=== PATIENT | female | born 1960 | race Caucasian/White ===

== ENCOUNTER → 2020-05-09 13:59 | Outpatient (CLI) | payer BC, SELFPAY ==
--- NOTE | ~2020-05-09 | MR_ITS ---
EXAMINATION: MR brain/brain stem wo/w con DATE: 05/09/2020 15:03 INDICATION: Fracture of base of skull, left side, sequela. Chronic recurrent sinusitis. TECHNIQUE: Magnetic resonance imaging (MRI) of the brain and brainstem was performed without and with 20 mL MultiHance intravenous contrast. Sequences included sagittal and axial T1-weighted FSE, axial diffusion-weighted FS EPI, axial T2*-weighted GRE, axial T2-weighted FLAIR Propeller, axial T2-weight ed Propeller, small mnsfz-is-vrge coronal FIESTA, small zvtno-yp-rguu coronal T1-weighted FSE, and sm all itjka-vt-hbzj axial T1-weighted SPGR. Postcontrast sequences included axial T1-weighted FSE, smal l bpccj-vm-thme coronal T1-weighted FSE, and small wwhfk-lm-gvft axial T1-weighted SPGR. Apparent dif fusion coefficient (ADC) maps were created. COMPARISON: Brain MRI 07/25/2016, head CT 09/20/2015 FINDINGS: There are scattered areas of nonspecific increased T2-weighted signal intensity in the cere bral white matter and bc, which is within normal limits for the patient's age. There is no intracra nial hemorrhage, acute infarction, or abnormal intracranial mass lesion. The ventricles are normal in size. There is mucosal thickening in the ethmoid and left frontal sinuses. The orbits are normal. Th e internal auditory canals and inner and middle ears are normal. The mastoid air cells are normal. IMPRESSION: 1. Normal aging brain. Reviewed, dictated and finalized at location A. IMPRESSION: 1. Normal aging brain.
[2020-05-09 14:26] LABS: Estimated Glomerular Filt Rate > 60
== END ==
DX: S02.102 Fracture of base of skull, left side (principal); J32.9 Chronic sinusitis, unspecified
CPT/HCPCS: 70553; A9577

== ENCOUNTER → 2020-05-09 14:00 | Outpatient (CLI) | payer BC, SELFPAY ==
--- NOTE | ~2020-05-09 | MM_ITS ---
EXAMINATION: MM screening [facility] BI w radha HISTORY: Screening mammogram TECHNIQUE: Craniocaudal and mediolateral oblique 3-D tomosynthesis images were obtained and synthetic 2-D images were generated. CAD analysis was submitted and interpreted. COMPARISON: 03/15/2019, 03/03/2018, 03/09/2017 bilateral digital screening mammogram examinations BREAST PARENCHYMAL COMPOSITION: There are scattered areas of fibroglandular density. FINDINGS: Stable mild fibroglandular asymmetry. There is no evidence of suspicious mass, calcificatio n, or architectural distortion to suggest malignancy in either breast. There has been no suspicious i nterval change. IMPRESSION: 1. No mammographic evidence of malignancy. 2. Recommend routine screening mammography in one year. BI-RADS Category 2: Benign finding(s). Reviewed, dictated and finalized at location A.
== END ==
PROVIDERS: Visit Provider Nurse Practitioner Obstetrics & Gynecology
DX: Z12.31 Encounter for screening mammogram for malignant neoplasm of breast (principal)
CPT/HCPCS: 77063; 77067

== ENCOUNTER → 2021-06-10 16:00 | Outpatient (CLI) | payer BC, SELFPAY ==
--- NOTE | ~2021-06-10 | MM_ITS ---
EXAMINATION: MM screening melony BI w radha HISTORY: Screening mammogram TECHNIQUE: Craniocaudal and mediolateral oblique 3-D tomosynthesis images were obtained and synthetic 2-D images were generated. CAD analysis was submitted and interpreted. COMPARISON: 05/05/2020, , 03/03/2018 bilateral digital screening mammogram examinations BREAST PARENCHYMAL COMPOSITION: There are scattered areas of fibroglandular density. FINDINGS: There is no evidence of suspicious mass, calcification, or architectural distortion to sugg est malignancy in either breast. There has been no suspicious interval change. IMPRESSION: 1. No mammographic evidence of malignancy. 2. Recommend routine screening mammography in one year. BI-RADS Category 1: Negative Reviewed, dictated and finalized at location A.
== END ==
PROVIDERS: Visit Provider Obstetrics & Gynecology
DX: Z12.31 Encounter for screening mammogram for malignant neoplasm of breast (principal)
CPT/HCPCS: 77063; 77067

== ENCOUNTER → 2021-08-06 15:58 | Outpatient (CLI) | payer BC, SELFPAY ==
--- NOTE | ~2021-08-06 | DEXA_ITS ---
Bone Density Report Name: SANDRA RAGSDALE Age: 60 Sex: Female Ethnicity: White Date of : 1960 Indication: osteopenia; parental hip fracture; rheumatoid arthritis; postmenopausal Referring Provider: BRANDON FISH Study: Bone densitometry was performed. Exam Date: August 06, 2021 Accession number: [id number] Bone Density: Region BMD T-score Z-score Classification AP Spine (L1-L4) 0.933 -1.0 0.5 Normal Femoral Neck (Left) 0.725 -1.1 0.2 Osteopenia Total Hip (Left) 0.881 -0.5 0.5 Normal Femoral Neck (Right) 0.787 -0.6 0.8 Normal Total Hip (Right) 0.851 -0.7 0.3 Normal Total Hip Mean 0.866 -0.6 0.4 Normal World Health Organization criteria for BMD impression classify patients as: Normal (T-score at or above -1.0), Osteopenia (T-score between -1.0 and -2.5), or Osteoporosis (T-score at or below -2.5). 10-year Fracture Risk(1): Major Osteoporotic Fracture 18% Hip Fracture 0.7% Reported Risk Factors: [place] (), Neck BMD=0.725, BMI=34.5, parental fracture, rheumatoid arthritis (1) FRAX(R) Version 3.08. Fracture probability calculated for an untreated patient. Fracture probability may be lower if the patient has received treatment. Previous Exams: Region Exam Age BMD T-score BMD Change BMD Change Date g/cm2 vs Baseline vs Previous AP Spine(L1-L4) 08/06/2021 60 0.933 -1.0 -0.099 0.021 03/11/2015 54 0.911 -1.2 -0.120 -0.113 02/26/2011 50 1.024 -0.2 -0.007 -0.007 02/27/2004 43 1.031 -0.1 Total Hip(Left) 08/06/2021 60 0.881 -0.5 0.020 -0.003 03/11/2015 54 0.885 -0.5 0.023 -0.041 02/26/2011 50 0.925 -0.1 0.064 0.064 02/27/2004 43 0.861 -0.7 Total Hip(Right) 08/06/2021 60 0.851 -0.7 -0.044 -0.006 03/11/2015 54 0.857 -0.7 -0.038 -0.043 02/26/2011 50 0.900 -0.3 0.005 0.005 02/27/2004 43 0.895 -0.4 *Denotes significance at 95% confidence level, LSC for AP Spine = 0.022 g/cm2, LSC for Total Hip = 0.027 g/cm2 Clinical Information Provided by Patient: Parent has had a hip fracture Has rheumatoid arthritis Has used the following medications: Vitamin D Patient maximum height was 64.5 Menopause Age: 51 Does not regularly consume dairy products Drinks caffeinated beverages Onset of menses at age 13 Number of children 0
== END ==
PROVIDERS: Visit Provider Obstetrics & Gynecology
DX: Z78.0 Asymptomatic menopausal state (principal); M85.852 Other specified disorders of bone density and structure, left thigh
CPT/HCPCS: 77080

== ENCOUNTER → 2022-03-24 16:03 | Outpatient (CLI) | payer BC, SELFPAY ==
--- NOTE | ~2022-03-24 | MM_ITS ---
EXAMINATION: MM screening [facility] BI w radha HISTORY: Screening mammogram TECHNIQUE: Craniocaudal and mediolateral oblique 3-D tomosynthesis images were obtained and synthetic 2-D images were generated. CAD analysis was submitted and interpreted. COMPARISON: 06/10/2021, 05/09/2020, 03/15/2019 BREAST PARENCHYMAL COMPOSITION: There are scattered areas of fibroglandular density. FINDINGS: There is no suspicious mass, calcification, or architectural distortion to suggest malignan cy in either breast. There has been no suspicious interval change. IMPRESSION: 1. No mammographic evidence of malignancy. 2. Recommend routine screening mammography in one year. BI-RADS Category 1: Negative Reviewed, dictated and finalized at location A.
== END ==
PROVIDERS: Visit Provider Obstetrics & Gynecology
DX: Z12.31 Encounter for screening mammogram for malignant neoplasm of breast (principal)
CPT/HCPCS: 77063; 77067

== ENCOUNTER 2022-08-13 15:54 | Emergency (ER) | payer BC, SELFPAY ==
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
[2022-08-13 16:09] VITALS: BP 131/75; PULSE 80; RESP 16; TEMP 36.3; O2SAT 99
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
[2022-08-13] MEDS: HYDROcodone/acetaminophen (*CRX) 5-325 MG TABLET 1 TAB PO (17:49)
[2022-08-13] MEDS: IBUPROFEN 400 MG TABLET 800 MG PO (17:49)
[2022-08-13] MEDS: TETANUS,DIPHTHERIA,AC PERTUSSIS ADULT (0.5 ML) BOOSTRIX IM (17:50)
[2022-08-13] MEDS: ACETAMINOPHEN 325 MG TABLET 650 MG PO (18:15)
== END 2022-08-13 19:14 | disposition home or self-care (01) ==
LOC: ANHED 18:32
PROVIDERS: Emergency Provider Emergency Medicine
DX: S42.291A Other displaced fracture of upper end of right humerus, initial encounter for closed fracture (principal); S80.812A Abrasion, left lower leg, initial encounter; S60.512A Abrasion of left hand, initial encounter; Z23 Encounter for immunization; I10 Essential (primary) hypertension; M06.9 Rheumatoid arthritis, unspecified; Z85.828 Personal history of other malignant neoplasm of skin; V18.4XXA Pedal cycle driver injured in noncollision transport accident in traffic accident, initial encounter; Y93.55 Activity, bike riding
CPT/HCPCS: 73060; 90471; 90715; 99284; A4565; A9270

== ENCOUNTER → 2022-08-19 12:52 | Outpatient (CLI) | payer BC, SELFPAY ==
--- NOTE | ~2022-08-19 | CT_ITS ---
Noncontrast CT scan of the right upper extremity Clinical history: Proximal humeral fracture TECHNIQUE: Axial noncontrast imaging of the right shoulder was performed. Sagittal and coronal reform atted images were constructed. Dose reduction technique was used on this scan by utilizing automated exposure control and iterative reconstruction technique. FINDINGS: There is a comminuted fracture of the proximal humerus, with transverse fracture line throu gh the surgical neck, as well as multiple facial fractures involving the greater tuberosity and proba cindy lesser tuberosity as well. Fracture fragments overall are mildly displaced. There is mild AC join t degenerative change. Small glenohumeral joint effusion is probably present. No other gross soft tissue abnormality evident on noncontrast CT scan. IMPRESSION: Comminuted fracture of the surgical neck of the humerus as well as the greater and lesser tuberositie s, with mild displacement overall. Reviewed, dictated and finalized at [facility]. PROFESSIONAL IMPRESSION: Comminuted fracture of the surgical neck of the humerus as well as the greater and lesser tuberosities, with mild displacement overall.
== END ==
DX: S42.291A Other displaced fracture of upper end of right humerus, initial encounter for closed fracture (principal); X58.XXXA Exposure to other specified factors, initial encounter
CPT/HCPCS: 73200

== ENCOUNTER → 2023-03-19 14:24 | Outpatient (CLI) | payer BC, SELFPAY ==
--- NOTE | ~2023-03-19 | MM_ITS ---
EXAMINATION: MM screening melony BI w radha HISTORY: Screening mammogram TECHNIQUE: Craniocaudal and mediolateral oblique 3-D tomosynthesis images were obtained and synthetic 2-D images were generated. CAD analysis was submitted and interpreted. COMPARISON: 03/24/2022, 06/10/2021, 05/09/2020 bilateral screening mammogram examinations BREAST PARENCHYMAL COMPOSITION: There are scattered areas of fibroglandular density. FINDINGS: There is no evidence of suspicious mass, calcification, or architectural distortion to sugg est malignancy in either breast. There has been no suspicious interval change. IMPRESSION: 1. No mammographic evidence of malignancy. 2. Recommend routine screening mammography in one year. BI-RADS Category 1: Negative Reviewed, dictated and finalized at location A.
== END ==
PROVIDERS: Visit Provider Obstetrics & Gynecology
DX: Z12.31 Encounter for screening mammogram for malignant neoplasm of breast (principal)
CPT/HCPCS: 77063; 77067

== ENCOUNTER 2023-10-29 14:54 | Outpatient (CLI) | payer BC, SELFPAY ==
--- NOTE | ~2023-10-29 | CT_ITS ---
EXAMINATION: CT diagnostic chest wo con DATE: 10/29/2023 15:21 INDICATION: sob, wheezing, fu lung nodule TECHNIQUE: Computed tomography (CT) of the chest was performed without intravenous contrast. Addition al 3D reconstructions utilizing coronal maximum intensity projection (MIP) were performed. Automated exposure control and iterative reconstruction technique were employed. The dose-length product was 32 0.90 mGy-cm. COMPARISON: 07/18/2019 FINDINGS: Again seen is minimal biapical pleural-parenchymal scarring. Lungs are otherwise clear with no pulmon jaz nodules, pneumonia, pulmonary edema or pleural effusion. Heart size is normal. Atherosclerotic co ronary artery calcification. No pericardial effusion. Thoracic aorta is normal in caliber. No patholo gically enlarged thoracic plain screw fixation at the proximal right humerus. Moderate thoracic lymph adenopathy. Moderate thoracic spondylosis with chronic mild anterior wedging of a few lower thoracic vertebral bodies. IMPRESSION: 1. No pulmonary nodules or other acute cardiopulmonary disease. Reviewed, dictated and finalized at location B.
== END 2023-10-29 14:55 ==
LOC: MICIMG 14:55
PROVIDERS: PCP Internal Medicine; Visit Provider Internal Medicine
DX: R06.2 Wheezing (principal); R06.02 Shortness of breath
CPT/HCPCS: 71250

== ENCOUNTER 2024-05-29 12:21 | Outpatient (CLI) | payer BC, SELFPAY ==
--- NOTE | ~2024-05-29 | MM_ITS ---
EXAMINATION: MM screening melony BI w radha HISTORY: Screening TECHNIQUE: Craniocaudal and mediolateral oblique 3-D tomosynthesis images were obtained and synthetic 2-D images were generated. CAD analysis was submitted and interpreted. COMPARISON: Comparison to multiple prior studies sequentially, with oldest reviewed study dated 04/2018. BREAST PARENCHYMAL COMPOSITION: Not dense: There are scattered areas of fibroglandular density. FINDINGS: There is no evidence of suspicious mass, calcification, or architectural distortion to sugg est malignancy in either breast. There has been no suspicious interval change. IMPRESSION: 1. No mammographic evidence of malignancy. 2. Recommend routine screening mammography in one year. BI-RADS Category 1: Negative Reviewed, dictated and finalized at location B.
== END 2024-05-29 12:22 | disposition home or self-care (01) ==
PROVIDERS: PCP Nurse Practitioner; Visit Provider Internal Medicine
DX: Z12.31 Encounter for screening mammogram for malignant neoplasm of breast (principal)
CPT/HCPCS: 77063; 77067

== ENCOUNTER 2024-06-05 10:46 | Outpatient (CLI) | payer BC, SELFPAY ==
--- NOTE | ~2024-06-05 | DEXA_ITS ---
Bone Density Report Name: SANDRA RAGSDALE Age: 63 Sex: Female Ethnicity: White Date of : 1960 Indication: postmenopausal; screening for osteoporosis; parental hip fracture; height loss; rheumatoid arthritis; Referring Provider: LUCILA HILARIO Study: Bone densitometry was performed. Exam Date: June 05, 2024 Accession number: [id number] Bone Density: Region BMD T-score Z-score Classification AP Spine(L1-L4) 0.947 -0.9 0.8 Normal Femoral Neck (Left) 0.685 -1.5 0.0 Osteopenia Total Hip (Left) 0.911 -0.3 0.9 Normal Femoral Neck (Right) 0.741 -1.0 0.5 Normal Total Hip (Right) 0.896 -0.4 0.8 Normal Total Hip Mean 0.904 -0.4 0.9 Normal World Health Organization criteria for BMD impression classify patients as: Normal (T-score at or above -1.0), Osteopenia (T-score between -1.0 and -2.5), or Osteoporosis (T-score at or below -2.5). 10-year Fracture Risk(1): Major Osteoporotic Fracture 20% Hip Fracture 1.2% Reported Risk Factors: [place] (), Neck BMD=0.685, BMI=30.5, parental fracture, rheumatoid arthritis (1) FRAX(R) Version 3.08. Fracture probability calculated for an untreated patient. Fracture probability may be lower if the patient has received treatment. Clinical Information Provided by Patient: Parent has had a hip fracture Has rheumatoid arthritis Has used the following medications: Vitamin D, Calcium Patient maximum height was 65.0 Does not regularly consume dairy products Drinks caffeinated beverages Onset of menses at age 13 Number of children 0 Impression: The patient has low bone mass, based on the Left Femoral Neck T-score. The patient has an estimated ten-year risk of hip fracture of 1.2% and an estimated ten-year risk of major fracture of 20%, based on the WHO FRAX algorithm. The patient has risk factors, including: parental hip fracture. Discussion: BONE DENSITY IS LOW AT ONE OR MORE SKELETAL SITES. THE PATIENT'S BMD AND CLINICAL RISK FACTORS CONTRIBUTE TO THIS PATIENT'S INCREASED RISK OF FRACTURE. This patient's lowest T-score is low at one or more skeletal sites. It meets the World Health Organization's (WHO) criteria for ?low bone mass? (T-score between -1.0 and -2.5). The patient's 10-year risk of a major osteoporotic fracture as calculated by FRAX exceeds the threshold where pharmacological therapy is recommended by the National Osteoporosis Foundation (NOF). However, all treatment decisions require clinical judgment and consideration of individual patient factors, including patient preferences, comorbidities, previous drug use, risk factors not captured in the FRAX model (e.g., frailty, falls, vitamin D deficiency, increased bone turnover, interval significant decline in bone density) and possible under or overestimation of fracture risk by FRAX. The
== END 2024-06-05 10:47 | disposition home or self-care (01) ==
LOC: ANHIMG 10:48
PROVIDERS: PCP Internal Medicine; Visit Provider Obstetrics & Gynecology
DX: Z13.820 Encounter for screening for osteoporosis (principal); M85.852 Other specified disorders of bone density and structure, left thigh
CPT/HCPCS: 77080

== ENCOUNTER 2025-06-07 14:25 | Outpatient (CLI) | payer BC, SELFPAY ==
--- NOTE | ~2025-06-07 | MM_ITS ---
EXAMINATION: MM screening melony BI w radha HISTORY: Screening TECHNIQUE: Craniocaudal and mediolateral oblique 3-D tomosynthesis images were obtained and synthetic 2-D images were generated. CAD analysis was submitted and interpreted. COMPARISON: Comparison to multiple prior studies sequentially, with oldest reviewed study dated 03/15/2019. BREAST PARENCHYMAL COMPOSITION: Not dense: There are scattered areas of fibroglandular density. FINDINGS: There is a developing left periareolar asymmetry. The right breast is stable without evidence for malignancy. There are no suspicious calcifications or architectural distortion. IMPRESSION: 1. Developing left periareolar asymmetry. 2. Additional mammographic views and possible breast ultrasound are recommended. BI-RADS Category 0: Incomplete: Needs additional imaging evaluation. Reviewed, dictated and finalized at location O. IMPRESSION: 1. Developing left periareolar asymmetry. 2. Additional mammographic views and possible breast ultrasound are recommended . BI-RADS Category 0: Incomplete: Needs additional imaging evaluation.
--- OUTSIDE RECORDS SUMMARY | 2025-06-07 15:26 | XMS_ITS ---
Author Organization [facility] Address [address] [place] [address] Care Team Providers Care [employer] Tier Off Name Role Phone Salbador Reyes MD Primary Care Provider [phone] Active Problems Problem Noted Date Diagnosed Date Other seborrheic keratosis 09/17/2022 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 Multiple benign melanocytic nevi 09/17/2022 Eczema 09/17/2022 Closed fracture of right proximal humerus 2022 Overview (08/27/2022): Added automatically from request for surgery [id number] Obesity with body mass index 30 or greater 03/15 High risk medications (not anticoagulants) long- term use 11/25/2010 Essential hypertension 01/22/2009 Overview (09/17/2022): Vitamin D deficiency 01/22/2009 01/21/2023 Rheumatoid arthritis 10/20/2008 Overview (09/17/2022): CCP (+): RF (+) First seen 02/24/07 Recent CBC CMP Vit D all WNL Treated chcf with MTX and it made her feel bad 11/28/2010 doing well CRP normal will reduce plaquenil 200 mg daily 11/27/2011 plaquenil R3=1 07/25/2013 R3=0 BCC (basal cell carcinoma of skin) 10/20/2008 Current Treatment and Therapy Plans No current plan information found. Past Treatment and Therapy Plans No past plan information found. Lifetime Dose Tracking * Chemical Lifetime Dose Automatic Entry Manual Entr y Fluoro Time 2.338 minutes 2.338 minutes 0 minutes Air kerma at the reference point (Ka,r) 15.62 mGy 1 5.62 mGy 0 mGy
--- OUTSIDE RECORDS SUMMARY | 2025-06-07 15:26 | XMS_ITS | Clinical Summary ---
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 before breakfast Active potassium chloride ER (KLOR-CON) 10 mEq CR tabletIndicatio ns:hypokalemia prevention Take 10 mEq by mouth superintendent renting managing before breakfast Active lisinopril (PRINIVIL,ZESTR IL) 20 mg tabletIndicatio ns:hypertension Take 20 mg by mouth 2 (two) times a day Active sertraline (ZOLOFT) 25 mg tabletIndicatio ns:Anxiety with Depression Take 50 mg by mouth superintendent renting managing before breakfast Active loratadine (CLARITIN) 10 mg tabletIndicatio ns:Allergic Rhinitis Take 10 mg by mouth nightly Active cholecalciferol (VITAMIN D-3) 15334 unit capsuleIndicati ons:Prevention of Vitamin D Deficiency Take 10,000 Units by mouth 2 (two) times a day Active calcium carbonate (CALTRATE 600 ORAL)Indication s:supplement Take 1 capsule by mouth superintendent renting managing before breakfast Active ascorbic acid (VITAMIN C) 100 mg tabletIndicatio ns:Vitamin C Deficiency Take 100 mg by mouth superintendent renting managing before breakfast Active coenzyme Q10 10 mg capsuleIndicati ons:supplement Take 10 mg by mouth superintendent renting managing before breakfast Active unyvbpc-xstk-nw zfz-bqcs-wwbznz 100 mg-150 mg- 50 mg-150 mg capsuleIndicati ons:supplement Take 1 capsule by mouth superintendent renting managing before breakfast Active lutein 20 mg tabletIndicatio ns:supplement Take 1 tablet by mouth superintendent renting managing before breakfast Active fluticasone propionate (FLONASE) 50 mcg/actuation nasal sprayIndication s:Allergic Rhinitis Administer 1 spray into each nostril as needed Active ibuprofen (ADVIL,MOTRIN) 800 mg tabletIndicatio ns:Pain Take 800 mg by mouth as needed 2 Active senna-docusate (PERICOLACE) 8.6-50 mg Take 2 tablets by mouth 2 (two) times a day 40 tablet 3 Active tofacitinib (XELJANZ) 5 mg tablet Take by mouth Active traMADoL (ULTRAM) 50 mg tablet Take 1 tablet (50 mg total) by mouth every 6 (six) hours as needed for pain 28 tablet 3 Active BD Tuberculin Syringe 1 mL 27 x 1/2 syringe USE WITH ALLERGY INJECTIONS TWICE WEEKLY 3 Active Active Problems Problem Noted Date Diagnosed Date Other seborrheic keratosis 09/17/2022 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 Multiple benign melanocytic nevi 09/17/2022 Eczema 09/17/2022 Closed fracture of right proximal humerus 2022 Overview (08/27/2022): Added automatically from request for surgery [id number] Obesity with body mass index 30 or greater 03/15 High risk medications (not anticoagulants) long- term use 11/25/2010 Essential hypertension 01/22/2009 Overview (09/17/2022): Vitamin D deficiency 01/22/2009 01/21/2023 Rheumatoid arthritis 10/20/2008 Overview (09/17/2022): CCP (+): RF (+) First seen 02/24/07 Recent CBC CMP Vit D all WNL Treated correction with MTX and it made her feel bad 11/28/2010 doing well CRP normal will reduce plaquenil 200 mg daily 11/27/2011 plaquenil R3=1 07/25/2013 R3=0 BCC (basal cell carcinoma of skin) 10/20/2008 Surgical History Surgery Date Site/Laterality Comments SKIN CANCER EXCISION APPENDECTOMY 08/16/1968 - 08/15/1969 SINUS SURGERY Medical History Medical History Date Comments Hypertension Hyperlipidemia MVP (mitral valve prolapse) hx o f Palpitations GERD (gastroesophageal reflux disease) Hiatal hernia Skin cancer basal cell Rheumatoid arthritis (HCC) Anxiety Obesity Family History Medical History Relation Name Comments Alcohol abuse Brother Alcohol abuse Father Heart disease Father Hypertension Father Anesthesia problems Neg Hx Relation Name Status Comments Brother Father Social History Tobacco Use Types Packs/Day Years Used Date Smoking Tobacco: Former Cigarettes Q uit: 10/06/1999 Smokeless Tobacco: Never Tobacco Cessation:Counseling Given: Not Answered Alcohol Use Standard Drinks/Week Comments Not Currently 0 (1 standard drink = 0.6 oz pur e alcohol) AUDIT-C Answer Date Recorded Q1: How often do you have a drink containing alcohol? Never 08/27/2022 Q2: How many drinks containi ng alcohol do you have on a typical day when you are drinking? Patient does not drink Q3: How often do you have si x or more drinks on one occasion? 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 Not on file Not on file Not on file Obstetrics History Last Filed Vital Signs Vital Sign Reading Time Taken Comments Blood Pressure 126/41 08/31/2022 12:40 PM HOUSE MOVING SUPERVISOR Pulse 69 08/31/2022 12:40 PM HOUSE MOVING SUPERVISOR Temperature 36.3 C (97.3 F) 08/31/2022 11:00 AM HOUSE MOVING SUPERVISOR Respiratory Rate 14 08/31/2022 12:4 0 PM HOUSE MOVING SUPERVISOR Oxygen Saturation 93% 08/31/2022 12: 40 PM HOUSE MOVING SUPERVISOR Inhaled Oxygen Concentration - - Weight 90.2 kg (198 lb 13.7 oz) 08/27/2022 2:25 PM HOUSE MOVING SUPERVISOR Height 163.8 cm (5' 4.5) 08/27/2022 2:25 PM HOUSE MOVING SUPERVISOR Body Mass Index 33.61 08/27/2022 2:25 PM HOUSE MOVING SUPERVISOR Plan of Treatment Health Maintenance Due Date Last Done Comments Breast Cancer Screening-Mammogram 1959 Cervical Cancer Screening 1959 Colon Cancer Screening-Colonoscopy 1959 Depression Screening 1959 Hepatitis C Screening 1959 Osteoporosis Screening-Bone Density Scan 1959 Hepatitis B Screening 11/09/1977 Fall Risk Assessment 08/27/2023 08/27/2022 Well Visit 65+ 11/09/2024 Pneumococcal vaccine 65+ (3 of 3 - PCV20 or PCV21) 01/06/2025 01/07/2020, 09/09/2015 Covid-19 Vaccine (6 - 2024-2 6 season) 2025 03/07/2022, 10/04/2021, 04/23/2021, Additional history exists Influenza Vaccine (#1) 2025 , 04/21/2020, 04/29/2019, Additional history exists DTaP/Tdap/Td Vaccine (2 - Td or Tdap) 08/13/2032 08/13/2022 Zoster Vaccine Completed 05/07/2018, 03/02/2018 Medical Devices Implanted Type Area Scullion Chief Device Identifier Shelf Expiration Date Model / Serial / Lot Musculoskeletal Transplant Graft Bone Fibula Shaft Allograft Frozen 40mmx5+ Mm [id number] - [id number] - [id number] Implanted:Qty: 1 on 08/31/2022 by Jerson Ferrer MD at [facility] Right: Humerus Musculoskeletal Transplant [id number] 05/04/2025 [id number] / [id number] / Synthes 3.5mm 2.9mm 42mm Self Tap Lock Stardrive Conical Head Full Thread 212.118 - [id number] Implanted:Qty: 1 on 08/31/2022 by Jerson Ferrer MD at [facility] Right: Humerus Synthes I 212.118 / / Synthes 3.5mm 2.9mm 46mm Self Tap Lock Stardrive Conical Head T15 Full 212.136 - [id number] Implanted:Qty: 1 on 08/31/2022 by Jerson Ferrer MD at [facility] Right: Humerus Synthes I 212.136 / / Synthes 3.5mm 2.9mm 40mm Self Tap Lock Stardrive Conical Head T15 Full 212.117 - [id number] Implanted:Qty: 1 on 08/31/2022 by Jerson Ferrer MD at [facility] Right: Humerus Synthes I 212.117 / / Synthes 3.5mm 2.9mm 36mm Self Tap Lock Stardrive Conical Head T15 Full 212.115 - [id number] Implanted:Qty: 1 on 08/31/2022 by Jerson Ferrer MD at [facility] Right: Humerus Synthes I 212.115 / / Synthes Lcp Combi Philos [id number] 3 Hole Shaft Lock Compression 241.901 - [id number] Implanted:Qty: 1 on 08/31/2022 by Jerson Ferrer MD at [facility] Right: Humerus Synthes I 241.901 / / Synthes 3.5mm 6mm 28mm 2.5mm Self Tap Small Hexagonal Socket Low Profile 204.828 - [id number] Implanted:Qty: 1 on 08/31/2022 by Jerson Ferrer MD at [facility] Right: Humerus Synthes I 204.828 / / Synthes 3.5mm 2.9mm 50mm Self Tap Lock Stardrive Conical Head T15 Full 212.121 - [id number] Implanted:Qty: 1 on 08/31/2022 by Jerson Ferrer MD at [facility] Right: Humerus Synthes I 212.121 / / Synthes 3.5mm 2.9mm 35mm Self Tap Lock Stardrive Conical Head T15 Full 212.114 - [id number] Implanted:Qty: 1 on 08/31/2022 by Jerson Ferrer MD at [facility] Right: Humerus Synthes I 212.114 / / Synthes 3.5mm 2.9mm 38mm Self Tap Lock Stardrive Conical Head T15 Full 212.116 - [id number] Implanted:Qty: 1 on 08/31/2022 by Jerson Ferrer MD at [facility] Right: Humerus Synthes I 212.116 / / Synthes 3.5mm 2.9mm 44mm Self Tap Lock Stardrive Conical Head T15 Full 212.134 - [id number] Implanted:Qty: 2 on 08/31/2022 by Jerson Ferrer MD at [facility] Right: Humerus Synthes I 212.134 / / Synthes 3.5mm 2.9mm 28mm Self Tap Lock Stardrive Conical Head T15 Full 212.110 - [id number] Implanted:Qty: 1 on 08/31/2022 by Jerson Ferrer MD at [facility] Right: Humerus Synthes I 212.110 / / Synthes 3.5mm 6mm 26mm 2.5mm Self Tap Small Hexagonal Socket Low Profile 204.826 - [id number] Implanted:Qty: 1 on 08/31/2022 by Jerson Ferrer MD at [facility] Right: Humerus Synthes I 204.826 / / Explanted Type Area Scullion Chief Device Identifier Shelf Expiration Date Model / Serial / Lot [employer] Trinity .062in 9in Trocar Point One End Orthopedic Wire [id number] - [id number] Explanted:Qty: 2 on 08/31/2022 by Jerson Ferrer MD at [facility] Right: Humerus [employer] [id number] S / / [place] [address] [facility] [place] Care Teams Construction Area Manager Relationship Specialty Start Date End Date Salbador Reyes MD [address] [place] [address] PCP - General 09/12/19
--- OUTSIDE RECORDS SUMMARY | 2025-06-07 15:26 | XMS_ITS | Encounter Summary ---
Author Organization [facility] Address [address] [address] Care Team Providers Care Spragger Name Role Phone Salbador Reyes MD Primary Care Provider Garcia Orellana MD Unavailable Unavailable Encounter Details Date Type Department Care Team (Late st Contact Info) Description 06/03/2012 [facility] Outpatient Visit EXTERNAL NON-[facility] Flaquito Mckay MD [address] [place] [id number] Social History Tobacco Use Types Packs/Day Years Used Date Smoking Tobacco: Never Alcohol Use Standard Drinks/Week Comments Yes 0 (1 standard drink = 0.6 oz pur e alcohol) RARELY Comments No Sex and Gender Information Value Date Recorded Sex Assigned at Not on file 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
--- OUTSIDE RECORDS SUMMARY | 2025-06-07 15:27 | XMS_ITS | Data Portability ---
Author Organization [facility] [place] Address [address] [place] [address] Care Team Providers Care Channeler Name Role Phone PETE HOLDER Primary Care Provider Assessment Encounter Date Assessment Date Assessment LastModified by Organization Details LastModified Time 05/13/2021 05/13/2021 healthy female exam/menopause patient *declines std testing pap due 2022, discussed guidelines mammogram scheudled next month colonoscopy due 2030 dexa baseline ordered Encouraged weight bearing exercise and 1500mg daily of Calcium with Vitamin D FU 1 year or prn [email or web address] Not available 05/14/2021 09:24:03 03/28/2022 03/28/2022 Annual gynecological exam performed. Patient will come back in a year unless there are new symptoms. [email or web address] Not available 03/28/2022 12:53:47 03/19/2023 03/19/2023 healthy female exam/menopause pap due 2024 mammogram later today colonoscopy due 2030 dexa repeat next year Encouraged weight bearing exercise and 1500mg daily of Calcium with Vitamin D FU 1 year or prn [email or web address] Not available 03/19/2023 18:23:24 05/29/2024 05/29/2024 Annual gynecological exam performed. Patient will come back in a year unless there are new symptoms. [email or web address] Not available 05/29/2024 14:59:50 05/30/2025 05/30/2025 Annual gynecological exam performed. Patient will come back in a year unless there are new symptoms. [email or web address] Not available 05/30/2025 16:03:24 Plan of Treatment Reminders Order Date Submit Date Provider Last Modified By Organization Details Last Modified Time Details Appointments None record ed. Lab None record ed. Referral None record ed. Procedures None record ed. Surgeries None record ed. Imaging None record ed. Medication Orders None record ed. Patient TargetsNo targets recorded. Patient InstructionsNo instructions recorded. Reason for Referral None Reported. 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 Atrop hic cell cecile sanders. Savanna castro david d by Jessica Bolanos, CT on 2021 at 1:23 PM ----- ----- ----- ----- ----- ----- ----- ----- ----- ----- ----- ----- ----- ----- ----- ----- ----- ---- HPV RESUL TS: HPV mRNA E6/E7 : No HPV mRNA Detec manuel NOTE: This high risk HPV mRNA assay detec ts fourt een high- risk HPV types (16, 18, 31, 33, 35, 39, 45, 51, 52, 56, 58, 59, 66, 68) witho ut diffe renti ation . COMME NT: Note: This speci men was revie wed by a Cytot echno logis t and/o r Patho logis t (as indic ated in this repor t) after evalu ation using the Thinp rep Imagi ng Syste m. CLINI DESIRAE INFOR MATIO N: Menst rual Statu s: LMP (if appli cable ): Clini desirae Histo ry/Pr eviou s Pap: Type of Neopl prudence (if appli cable ): Signi fican t Clini desirae Findi ngs: Other Histo ry: Hormo matt (if appli cable ): PAP EDUCA SERA L NOTE: The Pap Test is a scree dariel test with an inher ent false negat casper rate. Liqui d-bas ed sampl ing may decre ase, but will not elimi andrei, false negat casper resul ts. A negat casper resul t does not precl ude the prese nce and/o r devel opmen t of disea se, since the prese nce of abnor mal cells in the sampl e depen ds on the locat ion of the lesio n and sampl ing techn ique. Vero nued regul ar scree dariel is the best metho d of cance r preve ntion . If repor manuel cytol ogic findi ng do not corre late with physi desirae and/o r histo rical findi ngs, furth er inves tigat ion is recom solomon d, as clini raimundo diaz nted. Not Available [facility] [address] [place], [address], 04/03/2022 14:26:15 05/29/20 24 05/29/2024 IMAGE GUIDE D PAP AND HPV REGAR DLESS image guided Pap, HPV regardless of Pap result SEE RESULT S BELOW CASE REPOR T: Cytol ogy Gynec ologi desriae Repor t Case: [id number] Autho rizunilda g Provi vamshi: Antonio Ruff MD Colle cted: 05/29 1606 Order ing Locat ion: [place] [facility] Recei mak: 05/30 0147 First Scree n: Deloris Ramos, CT Speci men: David vieira Pap - Image d, Cervi x STATE MENT OF ADEQU ACY: Satis facto ry for evalu ation Trans forma tion zone compo nent canno t be defin itive ly ident ified due to the prese nce of atrop hy or other hormo nal che es ----- ----- ----- ----- ----- ----- ----- ----- ----- ----- ----- ----- ----- ----- ----- ----- ----- ---- FINAL DIAGN OSIS: Negat casper for Intra epith elial Lesio n or Leslie beth (NIL) . Atrop hic cell cecile sanders. Elect simon pascual by Deloris Ramos, CT on 06/02 at 12:15 PM ----- ----- ----- ----- ----- ----- ----- ----- ----- ----- ----- ----- ----- ----- ----- ----- ----- ---- HPV RESUL TS: HPV mRNA E6/E7 : No HPV mRNA Detec manuel NOTE: This high risk HPV mRNA assay detec ts fourt een high- risk HPV types (16, 18, 31, 33, 35, 39, 45, 51, 52, 56, 58, 59, 66, 68) witho ut diffe renti ation . COMME NT: This speci men was revie wed by a Cytot echno logis t and/o r Patho logis t (as indic ated in this repor t) after evalu ation using the Thinp rep Imagi ng Syste m. CLINI DESIRAE INFOR MATIO N: Menst rual Statu s: LMP (if appli cable ): Clini desirae Histo ry/Pr eviou s Pap: Type of Neopl prudence (if appli cable ): Signi fican t Clini desirae Findi ngs: Other Histo ry: Hormo matt (if appli cable ): PAP EDUCA SERA L NOTE: The Pap Test is a scree dariel test with an inher ent false negat casper rate. Liqui d-bas ed sampl ing may decre ase, but will not elimi andrei, false negat casper resul ts. A negat casper resul t does not precl ude the prese nce and/o r devel opmen t of disea se, since the prese nce of abnor mal cells in the sampl e depen ds on the locat ion of the lesio n and sampl ing techn ique. Vero nued regul ar scree dariel is the best metho d of cance r preve ntion . If repor manuel cytol ogic findi ng do not corre late with physi desirae and/o r histo rical findi ngs, furth er inves tigat ion is recom solomon d, as clini raimundo diaz nted. Not Available [facility] (Lab) [address], [place], [address], 06/02/2024 13:18:44 05/30/20 25 05/30/2025 IMAGE GUIDE D PAP AND HPV REGAR DLESS image guided Pap, HPV regardless of Pap result SEE RESULT S BELOW CASE REPOR T: Cytol ogy Gynec ologi desirae Repor t Case: [id number] Autho tim g Provi vamshi: Antonio Ruff MD Colle cted: 05/30 1554 Order ing Locat ion: [place] [facility] Recei mak: 05/31 0133 First Scree n: Zach Sosa, CT Speci men: Scree dariel Pap - Image d, Cervi x STATE MENT OF ADEQU ACY: Satis facto ry for evalu ation Trans forma tion zone compo nent canno t be defin itive ly ident ified due to the prese nce of atrop hy or other hormo nal che es ----- ----- ----- ----- ----- ----- ----- ----- ----- ----- ----- ----- ----- ----- ----- ----- ----- ---- FINAL DIAGN OSIS: Negat casper for Intra epith elial Lesio n or Leslie beth (NIL) . Atrop hic cell cecile sanders. Elect simon pascual by Zach Sosa CT on 06/05 at 0833 CDT ----- ----- ----- ----- ----- ----- ----- ----- ----- ----- ----- ----- ----- ----- ----- ----- ----- ---- HPV RESUL TS: HPV mRNA E6/E7 : No HPV mRNA Detec manuel NOTE: This high risk HPV mRNA assay detec ts fourt een high- risk HPV types (16, 18, 31, 33, 35, 39, 45, 51, 52, 56, 58, 59, 66, 68) witho ut diffe renti ation . COMME NT: This speci men was revie wed by a Cytot echno logis t and/o r Patho logis t (as indic ated in this repor t) after evalu ation using the Thinp rep Imagi ng Syste m. CLINI DESIRAE INFOR MATIO N: Menst rual Statu s: LMP (if appli cable ): Clini desirae Histo ry/Pr eviou s Pap: Type of Neopl prudence (if appli cable ): Signi fican t Clini desirae Findi ngs: Other Histo ry: Hormo mtat (if appli cable ): PAP EDUCA SERA L NOTE: The Pap Test is a scree dariel test with an inher ent false negat casper rate. Liqui d-bas ed sampl ing may decre ase, but will not elimi andrei, false negat casper resul ts. A negat casper resul t does not precl ude the prese nce and/o r devel opmen t of disea se, since the prese nce of abnor mal cells in the sampl e depen ds on the locat ion of the lesio n and sampl ing techn ique. Vero nued regul ar scree dariel is the best metho d of cance r preve ntion . If repor manuel cytol ogic findi ng do not corre late with physi desirae and/o r histo rical findi ngs, furth er inves tigat ion is recom solomon d, as clini raimundo warra nted. Not Available [facility] (Lab) [address], [place], [address], 06/05/2025 09:39:12 06/11/2006/10/2021 MAMMO , scree dariel, bilat eral No observ ation record ed. [facility] [address], [place], [address], 06/11/2021 17:36:42 06/11/2006/10/2021 MAMMO , scree dariel, bilat eral No observ ation record ed. [facility] [address], [place], [address], 06/11/2021 21:28:16 08/07/20 21 08/06/2021 DEXA, axial skele ton + verte bral fract ure asses sment No observ ation record ed. [facility] [address], [place], [address], 08/11/2021 14:14:53 03/25/20 22 03/24/2022 MAMMO , scree dariel, bilat eral No observ ation record ed. [email or web address] [address], [place], [address], 03/28/2022 12:40:09 03/25/20 22 03/24/2022 MAMMO , scree dariel, bilat eral No observ ation record ed. [facility] [address], [place], [address], 03/31/2022 22:23:25 03/19/20 23 03/19/2023 MAMMO , scree dariel, bilat eral No observ ation record ed. [facility] [address], [place], [address], 03/19/2023 21:50:28 06/07/2006/07/2025 imagi ng/di agnos tic resul t No observ ation record ed. [facility] [address] [place], [address], 06/07/2025 16:19:11 Result Notes None recorded. Problems Name Problem SNOMED Code Status Onset Date Resolution Date Notes Provider Name and Address Organization Details Recorded Time Pregnanc y test negative 943153118 Completed 201005/13/2021 Pregnanc y examinat ion or test, negative result;R ecorded Elsewher e: No Locat ion: [facility] S ource: EHR Blacking Machine Operator cooper: N Practi ce ID: 0001 Bay lable Time: 02:45:00 PM Zuleika Harrell MD [address], [place], [address], [facility] 17:10:25 Dysfunct ional uterine bleeding Completed 201005/13/2021 Other disorder s of menstrua tion and other abnormal bleeding from female genital tract;Re corded Elsewher e: No Locat ion: [facility] S ource: EHR Blacking Machine Operator cooper: N Practi ce ID: 0001 Bay lable Time: 02:45:00 PM Zuleika Harrell MD [address], [place], [address], [facility] 17:09:35 Screenin g for malignan t neoplasm of cervix Completed 201105/13/2021 Screenin g for malignan t neoplasm s of the cervix;R ecorded Elsewher e: No Locat ion: [facility] S ource: EHR Blacking Machine Operator cooper: N Pennyti ce ID: 0001 Bay lable Time: 03:45:00 PM Zuleika Harrell MD [address], [place], [address], [facility] 17:10:28 Postmeno pausal bleeding [id number] Completed 201205/13/2021 Postmeno pausal bleeding ;Recorde d Elsewher e: No Locat ion: [facility] S ource: EHR Blacking Machine Operator cooper: N Pennyti ce ID: 0001 Bay lable Time: 03:30:00 PM Zuleika Harrell MD [address], [place], [address], [facility] 17:09:38 Postoper ative follow-u p visit Completed 201305/13/2021 Follow-u p examinat ion, followin g unspecif ied surgery; Recorded Elsewher e: No Locat ion: [facility] S ource: EHR Blacking Machine Operator cooper: N Cristofer ce ID: 0001 Bay lable Time: 04:00:00 PM Zuleika Harrell MD [address], [place], [address], [facility] 17:10:18 Speciali zed medical examinat ion Completed 201305/13/2021 Gynecolo gical Examinat ion;Rusty rded Elsewher e: No Locat ion: [facility] S ource: EHR Blacking Machine Operator cooper: N Pennyti ce ID: 0001 Bay lable Time: 03:30:00 PM Zuleika Harrell MD [address], [place], [address], [facility] 17:10:38 Adult health examinat ion Completed 201405/13/2021 ROUTINE MEDICAL EXAM;Rec orded Elsewher e: No Locat ion: Karen carlos [facility] S ource: EHR Blacking Machine Operator cooper: N Practi ce ID: 0001 Bay lable Time: 02:00:00 PM Zuleika Harrell MD [address], [place], [address], [facility] 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 carlos [facility] S ource: EHR Blacking Machine Operator cooper: N Practi ce ID: 0001 Bay lable Time: 02:30:00 PM Zuleika Harrell MD [address], [place], [address], [facility] 17:10:36 Screenin g for malignan t neoplasm of rectum Completed 201605/13/2021 Encounte r for screenin g for malignan t neoplasm of rectum;R ecorded Elsewher e: No Locat ion: [facility] S ource: EHR Blacking Machine Operator cooper: N Cristofer ce ID: 0001 Bay lable Time: 02:30:00 PM Zuleika Harrell MD [address], [place], [address], [facility] 17:10:[address] Concept Completed 201805/13/2021 Encntr for general adult medical exam w/o abnormal findings ;Recorde d Elsewher e: No Locat ion: [facility] S ource: EHR Blacking Machine Operator cooper: N Practi ce ID: 0001 Bay lable Time: 03:30:00 PM Zuleika Harrell MD [address], [place], [address], [facility] 17:10:[address] Concept Completed 201805/13/2021 Encounte r for gynecolo gical examinat ion (general ) (routine ) with abnormal findings ;Recorde d Elsewher e: No Locat ion: Karen carlos [facility] S ource: EHR Blacking Machine Operator cooper: N Practi ce ID: 0001 Bay lable Time: 03:30:00 PM Zuleika Harrell MD [address], [place], [address], [facility] 1 17:10:34 Body mass index 30+ - obesity [id number] Active 2018 Body mass index (BMI) 36.0-36. 9, adult;Re corded Elsewher e: No Locat ion: [facility] S ource: EHR Blacking Machine Operator cooper: N Practi ce ID: 0001 Bay lable Time: 03:30:00 PM Not Available [facility] 0 21:51:44 Osteopen ia [id number] Active 2022 repeat dexa 2023 Zuleika Harrell MD [address], [place], [address], [facility] 3 18:23:40 Problem Notes None recorded. Procedures Surgical History Date Name Laterality Status Provider Name and Address Organization Details Recorded Time 05/29/20 24 [facility] 16:05:01 03/24/20 24 Date of Last Mammogram completed Jonna Rosa [facility] 05/30/2025 16:06:02 08/31/19 23 procedure on humerus completed Zuleika Harrell MD [address], [place], [address], [facility] 03/19/2023 18:24:31 08/06/20 21 Most Recent Bone Density completed Leah Schmidt [facility] 03/24/2022 13:41:51 02/18/20 21 Date of Last Colonoscopy completed [facility] 03/28/2022 13:30:41 02/18/20 21 colonoscopy completed Yashira Herzog KIMANI- [address], [place], [address], [facility] 03/28/2022 12:42:44 01/26/20 20 completed Jonna Rosa [facility] 05/30/2025 16:04:19 08/16/19 20 sinusotomy, multiple completed [facility] 03/28/2022 13:31:30 08/16/19 14 Hysteroscopy completed [facility] 03/28/2022 13:30:21 08/10/[address] segment monitoring completed [facility] 03/28/2022 13:32:28 11/15/19 09 excisional biopsy of basal cell carcinoma completed [facility] 03/28/2022 13:30:14 11/15/19 09 excision of basal cell carcinoma completed [facility] 03/28/2022 13:29:51 08/16/18 85 termination of completed [facility] 03/28/2022 13:34:49 08/16/18 82 extraction of wisdom tooth completed [facility] 03/28/2022 13:31:43 08/16/18 78 termination of completed [facility] 03/28/2022 13:34:45 08/16/18 69 Appendectomy completed [facility] 03/28/2022 13:31:12 Imaging Results None recorded. Procedure Notes None recorded. Medical Equipment None Reported. Allergies Allergen ID Allergen Name Allergen Category Reaction Reaction Severity Criticality Documentation Date Start Date Code Code System Note Provider Name and Address Organization Details Recorded Time 2142 erythromy maksim medicatio n Not available Not available Not available 05/09/2020 4053 RxNorm Claribel Dunn [facility] [place] - [facility] 0 13:02:00 Medications Name Sig Start Date Stop Date Status Note LastModified by Organization Details LastModified Time Prometriu m 200 mg capsule take 1 capsule (200MG) twice daily 03/06 completed Prescrib ed Elsewher e: No Locat ion: [facility] odify By: cedric Macdonald ncounter DateTime : 07/06/20 11 02:24:19 PM Not Available Not Available Not Available furosemid e 10 mg/mL injection solution inject 2 millilit er by intraven ous route every day slowly 05/13 completed Prescrib ed Elsewher e: Yes Loca tion: [facility] odify By: cedric ramírezunter DateTime : 06/26/20 13 10:00:00 AM Not Available Not Available Not Available doxycycli ne hyclate 100 mg capsule TAKE 1 CAPSULE BY MOUTH TWICE DAILY FOR 10 DAYS 05/13 completed Not Available Not Available Not Available Plaquenil 200 mg tablet take 1 tablet by oral route every day 06/26 completed Prescrib ed Elsewher e: Yes Loca tion: [facility] odify By: cedric Macdonald ncounter DateTime : 03/06/20 13 03:30:00 PM Not Available Not Available Not Available atorvasta tin 10 mg tablet TAKE 1 TABLET BY MOUTH ONCE DAILY active Not Available Not Available No t Available azithromy maksim 250 mg tablet 05/09 completed Not Available Not Available Not Available ibuprofen 800 mg tablet TAKE 1 TABLET BY MOUTH THREE TIMES DAILY NEEDED FOR PAIN FOR 7 DAYS 03/19 completed Not Available Not Available Not Available hydrocodo ne 5 mg-acetam inophen 325 mg tablet TAKE 1 TABLET BY MOUTH EVERY 4 TO 6 HOURS NEEDED FOR PAIN 03/19 completed Not Available Not Available Not Available lisinopri l 20 mg tablet TAKE 1 TABLET BY MOUTH ONCE DAILY active Not Available Not Available No t Available fluoroura cil 5 % topical cream active Not Available Not Available Not Available Zoloft 20 mg/mL oral concentra te take 2.5 millilit er by oral route every day and mix with 4 oz. (1/2 cup) of water, martina wild, lemon/li me soda, lemonade or orange juice ONLY 05/13 completed Prescrib ed Elsewher e: Yes Loca tion: [facility]ify By: aleja moreno DateTime : 02/29/20 12 03:45:00 PM Not Available Not Available Not Available potassium chloride ER 10 mEq tablet,ex tended release TAKE 1 BY MOUTH ONCE DAILY 05/29 completed Not Available Not Available Not Available tramadol 50 mg tablet TAKE 1 TABLET BY MOUTH EVERY 6 HOURS NEEDED FOR PAIN 05/29 completed Not Available Not Available Not Available BD Tuberculi n Syringe 1 mL 27 x 1/2 USE WITH ALLERGY INJECTIO NS TWICE WEEKLY active Not Available Not Available No t Available hydroxych loroquine sulfate (bulk) powder 03/06 completed Prescrib ed Elsewher e: Yes Loca tion: [facility]ify By: cedric bowers DateTime : 02/29/20 12 03:45:00 PM Not Available Not Available Not Available neomycin- polymyxin -dexameth 3.5 mg/mL-10, 000 unit/mL-0 .1% eye drops INSTILL 1 DROP INTO RIGHT EYE 4 TIMES DAILY FOR 7 DAYS NEEDED FOR INFECTIO N 05/27 completed Not Available Not Available Not Available lisinopri l 10 mg tablet 03/19 completed Not Available Not Available Not Available sertralin e 25 mg tablet TAKE 1 TABLET BY MOUTH ONCE DAILY IN THE MORNING active Not Available Not Available No t Available furosemid e 20 mg tablet TAKE 1 TABLET BY MOUTH ONCE DAILY 05/29 completed Not Available Not Available Not Available fluticaso ne propionat e 50 mcg/actua tion nasal spray,dana pension USE 1 SPRAY(S) IN EACH NOSTRIL TWICE DAILY active Not Available Not Available No t Available sertralin e 50 mg tablet TAKE 1 TABLET BY MOUTH ONCE DAILY IN THE MORNING active Not Available Not Available No t Available lisinopri l 2.5 mg tablet take 1 tablet by oral route every day 05/13 completed Prescrib ed Elsewher e: Yes Loca tion: [facility] odify By: aleja moreno DateTime : 02/29/20 12 03:45:00 PM Not Available Not Available Not Available finasteri de 5 mg tablet TAKE 1 TABLET BY MOUTH ONCE DAILY active Not Available Not Available No t Available loratadin e 10 mg tablet TAKE 1 TABLET BY MOUTH ONCE DAILY active Not Available Not Available No t Available amoxicill in 875 mg-potass ium clavulana te 125 mg tablet 05/09 completed Not Available Not Available Not Available Lipitor 05/29 completed Not Available Not Available Not Available methotrex ate (bulk) 100 % powder 02/21 completed Prescrib ed Elsewher e: Yes Loca tion: [facility]ify By: peyton ramírezunter DateTime : 06/26/20 13 10:00:00 AM Not Available Not Available Not Available Prevnar 13 (PF) 0.5 mL intramusc ular syringe 05/09 completed Not Available Not Available Not Available Suprep Bowel Prep Kit 17.5 gram-3.13 gram-1.6 gram oral solution USE DIRECTED 05/13 completed Not Available Not Available Not Available Claritin Liqui-Gel 10 mg capsule 05/13 completed Prescrib ed Elsewher e: Yes Loca tion: [facility] odify By: aleja moreno DateTime : 02/29/20 12 03:45:00 PM Not Available Not Available Not Available Xeljanz 5 mg tablet take 1 tablet by oral route 2 times every day active Not Available Not Available No t Available Xeljanz XR 11 mg tablet,ex tended release 05/29 completed Not Available Not Available Not Available Fluzone Quad (PF) 60 mcg (15 mcg x 4)/0.5 mL IM syringe 05/09 completed Not Available Not Available Not Available Fluzone Quad (PF) 60 mcg (15 mcg x 4)/0.5 mL IM syringe 05/09 completed Not Available Not Available Not Available BinaxNOW COVID-19 Ag Self Test kit TEST DIRECTED TODAY 05/29 completed Not Available Not Available Not Available Wegovy 1 mg/0.5 mL subcutane ous pen injector INJECT 1 PEN SUBCUTAN EOUSLY ONCE A WEEK active Not Available Not Available No t Available Wegovy 0.25 mg/0.5 mL subcutane ous pen injector INJECT 0.25MG SUBCUTAN EOUSLY ONCE WEEKY active Not Available Not Available No t Available Wegovy 0.5 mg/0.5 mL subcutane ous pen injector INJECT 0.5MG SUBCUTAN EOUSLY ONCE WEEKLY active Not Available Not Available No t Available Zepbound 5 mg/0.5 mL subcutane ous pen injector INJECT 0.5 MG SUBCUTAN EOUSLY ONCE A WEEK. active Not Available Not Available No t Available Zepbound 2.5 mg/0.5 mL subcutane ous pen injector INJECT 1 SYRINGE SUBCUTAN EOUSLY ONCE A WEEK active Not Available Not Available No t Available Zepbound 7.5 mg/0.5 mL subcutane ous pen injector INJECT 7.5 MG SUBCUTAN EOUSLY ONE TIME PER WEEK active Not Available Not Available No t Available Vitals Date Recorded Body height Body mass index (BMI) Body weight Systolic And Diastolic Systolic And Diastolic Provider Name and Address Organization Details Last Updated DateTime 03/19/2023 165.1 cm 33.9 kg/m2 34522.84 g 158/77 mm[Hg] 152/68 mm[Hg] [facility] 3 14:54:50 Date Recorded Body height Body mass index (BMI) Body weight Systolic And Diastolic Systolic And Diastolic Provider Name and Address Organization Details Last Updated DateTime 05/13/2021 165.1 cm 33.4 kg/m2 74117.07 g 150/78 mm[Hg] 150/70 mm[Hg] [facility] 1 16:52:51 Date Recorded Body height Body mass index (BMI) Body weight Systolic And Diastolic Provider Name and Address Organization Details Last Updated DateTime 05/29/2024 165.1 cm 29.8 kg/m2 23419.03 g 128/75 mm[Hg] Nelia Michelle [facility] 05/29/2024 15:03:02 Date Recorded Body height Body mass index (BMI) Body weight Systolic And Diastolic Provider Name and Address Organization Details Last Updated DateTime 05/30/2025 165.1 cm 27.1 kg/m2 76513.56 g 130/71 mm[Hg] Jonna Rosa [facility] 05/30/2025 16:03:53 Social History Question Answer Notes LastModified by Organizat ion Details LastModified Time Tobacco Smoking Status Never Smoker Claribel Dunn [email or web address], [facility] 05/09/2020 13:03:18 Are You Blind Or Do You Have Difficulty Seeing? No [email or web address] Information n ot available 05/29/2024 What Is Your Level Of Caffeine Consumption? Occasional [email or web address] Information not available 05/30/2025 In The 14 Days Before Symptom Onset, Have You Had Close Contact With A Laboratory-confirm ed COVID-19 While That Case Was Ill? No [email or web address] Information n ot available 05/29/2024 In The 14 Days Before Symptom Onset, Have You Had Close Contact With A Person Who Is Under Investigation For COVID-19 While That Person Was Ill? No [email or web address] Information not available 05/29/2024 Have You Been To An Area Known To Be High Risk For COVID-19? No [email or web address] Information not available 05/29/2024 Are You Deaf Or Do You Have Serious Difficulty Hearing? No [email or web address] Information not available 05/29/2024 What Type Of Diet Are You Following? REGULAR Information n ot available 05/30/2025 What Is The Highest Grade Or Level Of School You Have Completed Or The Highest Degree You Have Received? [id number] [email or web address] Information not available 05/30/2025 Are There Any Guns Present In Your Home? No Information not available 05/30/2025 Do You Use Protection During Sex? No [email or web address] Information not available 05/30/2025 Do You Use Your Seat Belt Or Car Seat Routinely? Yes Information not available 05/29/2024 Are You Sexually Active? Yes [email or web address] Information not available 05/30/2025 Do You Have Smoke And Carbon Monoxide Detectors In Your Home? Yes [email or web address] Information not available 05/29/2024 How Much Tobacco Do You Smoke? No [email or web address] Information not available 05/30/2025 Do You Use Sunscreen Routinely? Yes [email or web address] Information not available 05/29/2024 Has Tobacco Cessation Counseling Been Provided? No Information not available 05/13/2021 Have You Used IV Drugs? No [email or web address] Information not available 05/30/2025 Do You Have Difficulty Walking Or Climbing Stairs? No [email or web address] Information not available 05/29/2024 Sex: Unknown Functional Status Question Answer Note LastModified by Organizat ion Details LastModified Time Do you use any illicit or recreational drugs? No Information not available 05/13/2021 What is your level of alcohol consumption? Occasional [email or web address] Information not available 05/30/2025 Are you able to walk independently without assistance or assistive devices? YESWOREST [email or web address] Information not available 05/29/2024 Are you able to care for yourself independently? 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 No [email or web address] Information not available 05/29/2024 What is your exercise level? Moderate [email or web address] Information not available 05/30/2025 Mental Status Question Answer Note LastModified by Organization D etails LastModified Time Do you feel stressed (tense, restless, nervous, or anxious, or unable to sleep at night)? [id number] [email or web address] Information not available 05/30/2025 Family History Relationship Description Onset Age of this Age Resolved Age Notes LastModified by Organization Details LastModified Time Father Kidney disease [email or web address] Not available 2024 15:47:31 Father Heart disease [email or web address] Not available 2019 13:03:15 Mother Kidney disease Not available 2024 15:47:31 Mother Heart disease [email or web address] Not available 2019 13:03:15 Notes:Father: Renal disease, Congenital heart disease Mother: Congenital heart disease, Renal disease Medical History Condition Response Allergies (Food, seasonal, environmental ) Y Other N Breast Cancer N Drug/Latex Allergies/Reactions N Blood Transfusion N Lung Disease N Dermatologic Disorders N Defects or Inherited Disease N Breast Problem N Gestational Diabetes N Hematologic disorders N Anesthesia Complications N History of STI N Deep Vein Thrombosis N Polycystic ovary syndrome N Anxiety Disorder Y Autoimmune disease N Arthritis Y Infertility N Polyps N Acid Reflux (GERD) N History of abnormal pap N Cancer Y Stroke N Varicosities N Neurologic/Epilepsy N Endometriosis N High Cholesterol Y Headaches N Fibromyalgia N Kidney Disease N Heart Problems N Kidney or Bladder Problems N Thyroid Problems N GI Problems N Eating Disorder N Anemia N Art (IVF or FET) N Psychiatric Illness N Ovarian Cancer N Diabetes N Pulmonary (TB, Asthma) N Hepatitis/Liver Disease N No Past Medical History N Eczema N Urinary Tract Infection N Abuse/Domestic Violence N Asthma N Trauma/Violence Y Depression/ depression Y Heart Disease N Pre-Eclampsia N Hypertension Y Osteoporosis Y Thrombophilias N Gynecological History Statement/Question Response Date of Last Mammogram 03/24/2024 Date of LMP 06/16/2021 N STIs/STDs N Was last menstrual period normal Y HPV Vaccine Y Duration of Flow (days) 5 Current Control Method Menopause If Post Menopausal, Age at Menopause 51 Date of Last Colonoscopy 02/17/2021 Most Recent Bone Density 08/06/2021 Sexually Active? N Date of DEXA bone scan 08/06/2021 Age of first menstrual cycle 13 Date of Last Pap Smear 05/29/2024 Sexual Problems? N LMP Approximate 01/26/2020 N Obstetrics History GPAL:G 2 P 0 0 2 0 Type Value Induced 2 Living 0 Total 2 Past Encounters Encounter ID Performer Location Encounter Start Date Encounter Closed Date Diagnosis/Indication Diagnosis SNOMED-CT Code Diagnosis ICD10 Code Diagnosis IMO Codes Diagnosis Note [id number] Yashira Herzog [facility] [address] [address] 05/09/2020 13:00:07 05/09/2020 15:27:03 Gynecologic examination 14966256 Z01.419 Take Calcium with Vitamin D 12-1500mg daily. Do monthly self breast exams. It is advised to get annual flu shot in the fall and she could obtain at [facility] or [facility]. If you haven't received the Tdap vaccine in the last 10 years you should obtain one as well. Have mammogram yearly, bone density every 2-3 years and colonoscop y every 5-10 years depending on findings and history. Engage in daily exercise of low impact aerobic exercise 45-60 minutes 4-5 times weekly. Avoid tobacco and illicit drugs as well as using moderation with alcohol intake less than 1-2 8 oz beverages daily. This lifestyle behavior pattern will lead to less health conditions and longer life span. If BMI greater than 25 weight watchers or dietary consult advised. Questions have been answered. Patient appears to understand instructio ns, but if you have any further questions call or respond to this email No issues or concerns this year. Normal pap hx Same partner for years () Opts to defer pap this year per asccp unless otherwise indicated. Is seeing her PCP for management of her blood pressure currently. [id number] Zuleika Harrell MD [facility] [address],[facility] [place] [address] 05/13/2021 16:40:50 05/14/2021 16:00:31 Gynecologic examination [id number] Z01.419 [id number] [facility] [address],[facility] [place] [address] 03/28/2022 12:20:53 03/28/2022 12:58:29 Gynecologic examination [id number] Z01.419 Take Calcium with Vitamin D 12-1500mg daily. Do monthly self breast exams. It is advised to get annual flu shot in the fall and she could obtain at [facility] or [facility] clinic. If you haven't received the Tdap vaccine in the last 10 years you should obtain one as well. Have mammogram yearly, bone density every 2-3 years and colonoscop y every 5-10 years depending on findings and history. Engage in daily exercise of low impact aerobic exercise 45-60 minutes 4-5 times weekly. Avoid tobacco and illicit drugs as well as using moderation with alcohol intake less than 1-2 8 oz beverages daily. This lifestyle behavior pattern will lead to less health conditions and longer life span. If BMI greater than 25 weight watchers or dietary consult advised. Questions have been answered. Patient appears to understand instructio ns, but if you have any further questions call or respond to this email Pap/hpv sent STD Screen declined Genetic Screen discussed Colon Screen UTD PCP Dexa Screen UTD PCP Routine Labs UTD PCPMammo [facility] PCP [id number] Zuleika Harrell MD [facility] [address] [address] 03/19/2023 14:31:18 03/22/2023 15:59:58 Gynecologic examination [id number] Z01.419 [id number] LUCILA HILARIO MD [facility] [address] [address] 05/29/2024 14:55:30 05/29/2024 15:36:56 Gynecologic examination [id number] Z01.419 [facility]- Cervical cancer screening: Pap smear obtained today, will follow up on the results with the patient as they become available- Breast cancer screening: mammogram completed- Bone mineral screening: DEXA scheduled, hx of osteopenia - Colon cancer screening: completed 2020- HPV immunizati on: does not qualify- STD testing: declined- hereditary cancer screening: does not qualify for testing [id number] LUCILA HILARIO MD [facility] [address] [address] 05/30/2025 15:45:39 05/30/2025 16:27:49 Gynecologic examination [id number] Z01.419 [id number] [facility]- Cervical cancer screening: Pap smear obtained today, will follow up on the results with the patient as they become available- Breast cancer screening: mammogram ordered- Colon cancer screening: completed 2020- HPV immunizati on: does not qualify- STD testing: declined- hereditary cancer screening: does not qualify for testing Health Concerns Section Related Observation LastModified by Organization Detai ls LastModified Time None Recorded Concern Status LastModified by Organization Details LastModified Time None Recorded Advance Directives Directive None Recorded Payers Insurance Date Sequence Insurance Name Policy Number Policy Hernandez Covered Member ID Hernandez Member ID Guarantor Name 05/29/2025 1 [place] [id number] Vj Jacobson [id number] Vj Jacobson Notes Date Note Type Note Provider Name and Address Organization Details Recorded Time 1 text/html Patient is a 60yo who presents for an annual exam. menopause age 50. no concerns. last pap-04/2020 mammo-[facility] 06/10/21 colonoscopy-01/2021, 10 years dexa-none menopause-10 years sexually active-y seatbelts-y exercise-y depression-denies domestic violence-denies tobacco-n concerns- Zuleika Harrell MD [address], [place], [address], [facility] 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 For vaginal bleeding, patient reportshistory of menopause having occurredandno history of post menopausal bleeding. For urinary symptoms, patient reportsno hematuria,no incontinence,no nocturia, andno urinary frequency. For vulva, patient reportsno genital lesionandno vulvar atrophy. For vagina, patient reportsnormal vaginal dischargeandno vaginal atrophy.Breast symptomsFor breast, patient reportsno breast lump,no nipple discharge, andno breast pain.Psychological symptomsFor sexual complaints, patient reportsno sexual complaints. For psychological symptoms, patient reportsno depressionandno anxiety.Preventative measuresFor preventive measures, patient reportsencourage regular mammograms starting age 40,encourage self breast examination,encourage regular exercise,encourage no tobacco use,mammogram performed within the past year, andhistory of recent colonoscopy. Yashira Herzog, [facility] [address], [place], [address], [facility] 03/28/2022 12:54:59 3 text/html Patient is a 62yo who presents for an annual exam. Menopause 50, no bleeding. Shattered right humerus and had surgical repair in August. last pap-03/2022 mammo- scheduled today colonoscopy-2020, 10 years dexa-07/2021 osteopenia menopause-50yo sexually active-y seatbelts-y exercise-y depression-denies domestic violence-denies tobacco-n concerns-n Zuleika Harrell MD [address], [place], [address], [facility] 03/19/2023 18:25:23 4 text/html Presents today for her annual well-woman exam. Denies abnormal vaginal discharge. She is sexually active and denies dyspareunia. She has not noticed any changes or masses in her breasts. Up to date on mammograms, completed today. Menopausal, no PMB. No hx of abnormal pap smears. On zepbound for the past 4 months. Has lost 20lbs so far. Hx of osteopenia, last DEXA 2020. Will repeat this year, scheduled per patient. LUCILA HILARIO MD [address], [place], [address], [facility] 05/29/2024 15:32:01 5 text/html Annual GYNReported by Patient Presents today for her annual well-woman exam. Denies abnormal vaginal discharge. She is sexually active and denies dyspareunia. She has not noticed any changes or masses in her breasts. Up to date on mammograms. Menopausal, no PMB. No hx of abnormal pap smears. Having some urge incontinence. LUCILA HILARIO MD [address], [place], [address], [facility] 05/30/2025 16:27:18 OBGyn Episode Ob Episode Information Episode Created Date Number of Fetuses Patient Bloodtype Patient rh Status Prepregnancy Weight lbs Domestic Partner Domestic Partner Phone Father Name Fermentation Manager Status 05/09/20 20 1 CLOSED Fetus Data First Name Last Name Admitted to NICU Weight (g) Sex Living Outcome Pediatric Complications Fetus ID Race Codes Race Delivery Type , Induced [id number] Logan Calculation Initial Logan Date Initial Exam Date Initial Exam Provider Initial Ultrasound Date Last Menstrual Period Date Ultra Sound Weeks Gestation 0 Eighteen To Twenty Week Logan Update Ultra Sound Date Fundal Height At Umbil Quickening Date Ultra Sound Latest Weeks Gestation Final Logan Confirmed By Final Logan Confirmed Date Final Logan Date Ultra Sound Latest Days Gestation 0 0 Menstrual History Last Menstrual Date Menses Monthly On Bcp Conception Prior Menses Frequency Hcg Plus Date Menarche Onset Age Delivery Information Delivery Date Delivery Type Labor Anesthesia Weeks Gestation Incision Type Labor Labor Length Hrs Delivered By Post Complications Tubal Sterilization Discharge Date Comments 8 Discharge Information Feeding Method Contraceptive Method Maternal HG B and HCT Levels Ob Episode Information Episode Created Date Number of Fetuses Patient Bloodtype Patient rh Status Prepregnancy Weight lbs Domestic Partner Domestic Partner Phone Father Name Fermentation Manager Status 05/09/20 20 1 CLOSED Fetus Data First Name Last Name Admitted to NICU Weight (g) Sex Living Outcome Pediatric Complications Fetus ID Race Codes Race Delivery Type , Induced [id number] Logan Calculation Initial Logan Date Initial Exam Date Initial Exam Provider Initial Ultrasound Date Last Menstrual Period Date Ultra Sound Weeks Gestation 0 Eighteen To Twenty Week Logan Update Ultra Sound Date Fundal Height At Umbil Quickening Date Ultra Sound Latest Weeks Gestation Final Logan Confirmed By Final Logan Confirmed Date Final Logan Date Ultra Sound Latest Days Gestation 0 0 Menstrual History Last Menstrual Date Menses Monthly On Bcp Conception Prior Menses Frequency Hcg Plus Date Menarche Onset Age Delivery Information Delivery Date Delivery Type Labor Anesthesia Weeks Gestation Incision Type Labor Labor Length Hrs Delivered By Post Complications Tubal Sterilization Discharge Date Comments 5 Discharge Information Feeding Method Contraceptive Method Maternal HG B and HCT Levels
--- OUTSIDE RECORDS SUMMARY | 2025-06-07 15:27 | XMS_ITS | Patient Health Record ---
Author Organization [facility] Address [address] [place], [place] [id number] Care Team Providers Care Insurance Sales Professional Name Role Phone GLORY HOWELL, PETE Primary Care Provider UnaFiona Nolan Unavailable [phone] Allergies Allergen (clinical drug ingredient) Drug/Non Drug Allergy documented on EMR Reaction Allergy Type Onset Date Status erythromycin Erythromycin Unknown Drug Allergy A ctive Results Component Value Reference Range Notes CLIENT EDUCATION TRACKING Reviewed date:10/05/2024 11:38:19 AM Interpretation:10/10 toenail fungal cx Negative Performing Lab:[facility]-[id number] [facility], [id number] Pia Morales MD Notes/Report: FASTING: UNKNOWN CLIENT EDUCATION TRACKING The Requisition we received did not include a [employer] account number. To prevent delays in testing and processing of your orders please provide the following information with every order submitted: [facility] account number and account name Client address Client phone and fax number NPI number of ordering physician along with the physician name. CULTURE,FUNGUS,SKIN,HAIR, NA [place] W/DIRECT FLUOR/ABRAHAM Reviewed date:10/05/2024 11:38:19 AM Interpretation: Negative Performing Lab:[facility] [id number] Administration Rosalba Bingham [id number] Pia Morales Notes/Report: FASTING: UNKNOWN CULTURE,FUNGUS,SKIN,HAIR, NA IL W/DIRECT FLUOR/ABRAHAM SEE NOTE CULTURE,FUNGUS,SKIN,HAIR, NAIL W/DIRECT FLUOR/ABRAHAM Micro Number: [id number] Test Status: Final Specimen Source: Hallux (great toe), right Specimen Quality: Adequate Smear: No fungal elements seen. Result: No fungal growth at 4 Weeks Reason For Referral No Information Medications Medication SIG (Take, Route, Frequency, Duration) Notes Start Date End Date Status Sertraline HCl Activ e Atorvastatin Calcium Active Zepbound Active Xeljanz Active Efudex 5 % 1 application Externally Twice a day for 30 days 12/20/2019 Not-Taking Potassium Chloride ER 10 MEQ Oral for 90 Active Loratadine Active Lisinopril Active Doxycycline Hyclate 100 MG 1 capsule Orally Twice a day for 10 day(s) 07/18/2020 Not-Taking Finasteride Active Immunizations Vaccine Route Administration Date Status Comme nts Influenza, unspecified formu lation (CPT 87019 Inactive) Unknown 04/20/2017 Administered Pneumococcal polysaccharide PPV23 Unknown 04/20/2017 Ad ministered Influenza, unspecified formu lation (CPT 48527 Inactive) Unknown 05/25/2018 Administered Influenza, unspecified formu lation (CPT 56405 Inactive) Unknown 06/25/2020 Administered Influenza, unspecified formu lation (CPT 16544 Inactive) Unknown 04/29/2021 Administered Influenza, unspecified formu lation (CPT 66037 Inactive) Unknown 05/06/2022 Administered Pneumococcal polysaccharide PPV23 Unknown 01/03/2020 Ad ministered Influenza, unspecified formu lation (CPT 86132 Inactive) Unknown 05/25/2023 Administered Influenza, unspecified formu lation (CPT 56023 Inactive) Unknown 05/04/2024 Administered Pneumococcal polysaccharide PPV23 Unknown 08/18/2023 Re fused Pneumococcal polysaccharide PPV23 Unknown 09/06/2024 Re fused Social History Tobacco Use: Social History Observation Description Date Details (start date - stop date) Former Smoker NA - NA Tobacco Use/Smoking Question Answer Notes Are you a former smoker Problems Problem Type SNOMED Code ICD Code Onset Dates Problem Status W/U Status Risk Notes Problem Actinic keratosis (422521953) Actinic keratosis (L57.0) Active confirmed we'll retreat with Efudex 5% cream twice a day for 3 weeks. Patient was warned of the side effects of this medication. Problem Nail dystrophy (72055222) Nail dystrophy (L60.3) Active confirmed Secondary to injury. Reassured patient that her nails with likely detached but subsequently regrow. Problem History of malignant basal cell tumor of skin (653655671) History of basal cell carcinoma (Z85.828) Active confirmed No evidence of recurrence or new lesions indicative of this malignancy on Limited skin exam. Patient instructed on skin care monitoring and sun protection. Problem Eczema (22789219) Eczema, unspecified type (L30.9) Active confirmed Can use triamcinolone cream on the back as needed Problem Multiple seborrheic keratoses (091315468) Seborrheic keratoses (L82.1) Active confirmed Reassured the patient these lesions posed no threat and that no treatment is required. lesions were treated today on the backas a courtesy to the patient. Patient was warned about incomplete therapy, scarring, pain, and recurrence. Problem Onychomycosis (855808677) Onychomycosis (B35.1) Active confirmed Culture today to make the diagnosis and guide therapy Problem Folliculitis (23766809) Folliculitis (L73.9) Active confirmed Patient was cultured today to direct antibiotic therapy Problem History of skin disorder (022921993) Actinic keratosis, hx of (Z87.2) Active confirmed No evidence of recurrence or new lesions indicative of this malignancy on Limited skin exam. Patient instructed on skin care monitoring and sun protection. Problem Multiple benign melanocytic nevi (650678928) Multiple nevi (D22.9) Active confirmed Benign appearing nevi were noted on Back. Patient education was provided including the ABCDs of melanoma and identification of nonmelanoma skin cancers as well as the importance of sun protection. Vital Signs Weight 165 lbs 09/06/2024 Encounters Encounter Location Date Provider Diagnosis [facility] [address] [place], [place] [id number] 09/06/2024 Fiona Dave Onychomycosis B35.1 ; Multiple nevi D22.9 ; History of basal cell carcinoma Z85.828 and Actinic keratosis, hx of Z87.2 [facility] [address] [place], [place] [id number] 10/05/2024 Fiona Dave Assessments Encounter Date Diagnosis (ICD Code) Assessment Notes Treatment Notes Treatment Clinical Notes Section Notes 09/06/2024 Onychomycosis (ICD-10 - B35.1) Culture today to make the diagnosis and guide therapy 09/06/2024 Multiple nevi (ICD-10 - D22.9) Benign appearing nevi were noted on Back. Patient education was provided including the ABCDs of melanoma and identification of nonmelanoma skin cancers as well as the importance of sun protection. 09/06/2024 History of basal cell carcinoma (ICD-10 - Z85.828) No evidence of recurrence or new lesions indicative of this malignancy on Limited skin exam. Patient instructed on skin care monitoring and sun protection. 09/06/2024 Actinic keratosis, hx of (ICD-10 - Z87.2) No evidence of recurrence or new lesions indicative of this malignancy on Limited skin exam. Patient instructed on skin care monitoring and sun protection. 09/06/2024 Other Learning About Sun Damage and Your Skin material was published Plan Of Treatment Pending Test Test Name Order Date Fungus (Mycology) Culture 09/06/2024 Aerobic Bacterial Culture 07/15/2020 Skin, Shave Biopsy 08/18/2023 Insurance Providers Payer Name Payer Address Payer Phone Subscriber Number Group Number Insured Name Patient Relationship to Insured Coverage Start Date Coverage End Date BCBS FEP [address] [place] [phone] [id number] SANDRA RAGSDALE Self - patient is the insured Medical (General) History Medical History History ICD Code Actinic Keratosis (pre-cancers) Basal Cell Carcinoma High Cholesterol Hypertension Surgical History Surgery Date(Month/Year) skin cancer surgery
--- OUTSIDE RECORDS SUMMARY | 2025-06-07 15:27 | XMS_ITS | Clinical Summary ---
Author Organization [facility] Address [address] [place] [address] Care Team Providers Care Power Station Operator Name Role Phone Salbador Reyes MD Primary Care Provider Garcia Orellana MD Unavailable Unavailable Source Comments [facility],non-owned Affiliates and Associated Physician Practices is amultiple site organization consisting of ambulatory clinics and hospital sitesin [place], [place], [place] and [place]. This disclosure is being madepursuant to the Care Everywhere program and may not contain all information available regarding this patient. Last updated 18.[facility] Allergies Active Allergy Reactions Criticality Noted Date Comments Erythromycin Nausea 09/24/2009 Other 05/03/2012 Airborne pollen Medications * Be aware that medications may not be up to date on this document. Alwaysverify current medications with the patient. lisinopril (PRINIVIL; ZESTRIL) 10 MG tablet Take 10 mg by mouth daily. Active sertraline (ZOLOFT) 50 MG tablet Take 25 mg by mouth daily. Active MULTIVITAMIN PO Take by mouth daily. Active fluticasone propionate (FLONASE) 50 MCG/ACT nasal spray [place] 1 [place] into each nostril 2 times daily. Active LORATADINE PO Take 10 mg by mouth once daily. Active Potassium Chloride 10 MEQ CPCR Take by mouth once daily. Active furosemide (LASIX) 20 MG tablet Take 20 mg by mouth once daily. Active atorvastatin (LIPITOR) 10 MG tablet Take 10 mg by mouth at bedtime. Active ibuprofen (IBU) 800 MG tabletIndicati ons:Rheumatoid arthritis(714. 0) ([facility]) Take 1 Tab by mouth 3 times daily. 1 pill three times daily for seven days for flare ups of pain and inflammation 90 Tab 6 3 Active acetaminophen (TYLENOL) 500 MG tabletIndicati ons:Rheumatoid arthritis(714. 0) ([facility]) Take 2 Tabs by mouth 3 times daily. Maximum allowable Acetaminophen amount = 4 Grams (4000 mg) / 24 hours. 3 Active Additional Information Patient not taking.Reported on 12/14/2018 fish oil/omega-3 fatty acids (PROMEGA;CARDI -OMEGA 3) 1000 MG capsuleIndicat ions:Rheumatoi d arthritis(714. 0) ([facility]) Take 1 Cap by mouth 3 times daily with meals. 0 3 Active Cholecalcifero l (VITAMIN D) 1000 UNIT capsuleIndicat ions:Vitamin D deficiency Take 1 Cap by mouth once daily. 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 11/28/2010 doing well CRP normal will reduce plaquenil 200 mg daily 11/27/2011 plaquenil R3=1 07/25/2013 R3=0 BCC (basal cell carcinoma of skin) 10/20/2008 Family History Medical History Relation Name Comments CAD (Coronary Artery Disease) Father Hypertension Father Relation Name Status Comments Father Alive Mother Alive Social History Tobacco Use Types Packs/Day Years Used Date Smoking Tobacco: Former Smokeless Tobacco: Never Comments:1999 Alcohol Use Standard Drinks/Week Comments Yes 0 (1 standard drink = 0.6 oz pur e alcohol) RARELY Comments No Sex and Gender Information Value Date Recorded Sex Assigned at Not on file 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 Gender Identity Not on file Sexual Orientation Not on file Last Filed Vital Signs Vital Sign Reading Time Taken Comments Blood Pressure 112/82 12/14/2018 9:28 AM CDT Pulse 78 12/14/2018 9:28 AM CDT Temperature - - Respiratory Rate - - Oxygen Saturation - - Inhaled Oxygen Concentration - - Weight 95.9 kg (211 lb 6.4 oz) 12/14/2018 9:28 A M CDT Height 163.8 cm (5' 4.5) 12/14/2018 9:28 AM CDT Body Mass Index 35.73 12/14/2018 9:28 AM CDT Plan of Treatment Health Maintenance Due Date Last Done Comments BONE DENSITY TESTING 1959 COLOGUARD (AGES 45-75) - COLON CA SCREENING 1959 COLON MONITORING 1959 COLONOSCOPY - COLON CA SCREENING 1959 CT COLONOGRAPHY - COLON CA SCREENING 1959 Colorectal Cancer Screening 1959 FIT - COLON CA SCREENING 1959 FLEX SIG - COLON CA SCREENING 1959 MAMMOGRAM 1959 HIV SCREENING 11/09/1974 HEPATITIS C SCREENING 11/05/1977 DTAP/TDAP/TD VACCINES (1 - Tdap) 11/09/1978 PNEUMOCOCCAL VACCINE 50+ (1 of 1 - PCV) 11/09/2009 ZOSTER VACCINE (1 of 2) 11/09/2009 DEPRESSION SCREENING 08/16/2024 PAP SMEAR 03/30/2025 03/30/2022, 03/30/2022 COVID-19 VACCINE ( - season) 2025 INFLUENZA VACCINE (#1) 2025 2, 04/29/2021, 06/25/2020, Additional history exists Respiratory Syncytial Virus (RSV) Vaccine Pt: or over 60 yrs (1 - 1-dose 75+ series) 11/09/2034 HEPATITIS B VACCINE Aged Out No longe r eligible based on patient's age to complete this topic HIB VACCINE Aged Out No longer eligi ble based on patient's age to complete this topic HPV VACCINE Aged Out No longer eligi ble based on patient's age to complete this topic MENINGOCOCCAL (Group B) VACCINE SHARED DECISION-MAKING Aged Out No longer eligible based on patient's age to complete this topic MENINGOCOCCAL GROUPS A/C/Y/W VACCINE Aged Out No longer eligible based on patient's age to complete this topic Insurance [employer] Care Teams Power Station Operator Relationship Specialty Start Date End Date Salbador Reyes MD PCP - General 10/20/08 Garcia Orellana MD Rheumatology 11/26/11
== END 2025-06-07 14:26 | disposition home or self-care (01) ==
PROVIDERS: PCP Internal Medicine; Visit Provider Obstetrics & Gynecology
DX: Z12.31 Encounter for screening mammogram for malignant neoplasm of breast (principal); R92.8 Other abnormal and inconclusive findings on diagnostic imaging of breast
CPT/HCPCS: 77063; 77067

== ENCOUNTER 2025-06-21 07:57 | Outpatient (CLI) | payer BC, SELFPAY ==
--- NOTE | ~2025-06-21 | MM_ITS ---
EXAMINATION: MM diagnostic melony LT w radha INDICATION: 64-year old female; BI-RADS 0, callback to evaluate Left breast asymmetry COMPARISON: 06/07/2025 TECHNIQUE: Digital breast tomosynthesis True lateral view and spot compression pain CC and MLO views of Left breast were obtained with computer-aided detection to assist in interpretation of the study. FINDINGS: There are scattered areas of fibroglandular density. The asymmetry seen in the periareolar location on the Left breast on the screening mammogram effaces on additional views, compatible with normal overlapping tissue.. IMPRESSION: Left breast finding represents superimposition of fibroglandular tissue. No further investigation necessary. RECOMMENDATION: Annual screening mammography in 12 months BI-RADS 2, BENIGN Reviewed, dictated and finalized at location B. ER SEALER IMPRESSION: Left breast finding represents superimposition of fibroglandular tissue. No fur ther investigation necessary. RECOMMENDATION: Annual screening mammography in 12 months BI-RADS 2, BENIGN
== END 2025-06-21 07:58 | disposition home or self-care (01) ==
PROVIDERS: PCP Obstetrics & Gynecology; Visit Provider Obstetrics & Gynecology
DX: R92.8 Other abnormal and inconclusive findings on diagnostic imaging of breast (principal)
CPT/HCPCS: 77061; 77065; G0279